=== PATIENT | male | born 1965 | race Caucasian/White ===

== ENCOUNTER → 2025-05-06 09:36 | Outpatient (BNVA) | payer OTHER, SELFPAY | PROVIDERS: PCP Nurse Practitioner; Visit Provider Surgery | DX: Z12.11 Encounter for screening for malignant neoplasm of colon (principal) | CPT/HCPCS: 99203 ==

== ENCOUNTER 2025-06-12 06:45 | Day surgery (SDC) | payer OTHER, SELFPAY ==
[2025-06-12 07:00] VITALS: BP 120/86; PULSE 101; RESP 18; TEMP 36.2; O2SAT 95; BMI 29.2
--- NOTE | 2025-06-12 07:28 | W.PM.OPSFHP ---
Same Day Surgery H&P Indication for Procedure/HPI DATE OF PROCEDURE: June 12, 2025 CHIEF COMPLAINT/INDICATIONFOR SURGICAL PROCEDURE: need for screening colonoscopy PREOP DIAGNOSIS: need for screening colonoscopy PLANNED PROCEDURE: Operation Date: 06/12/25 08:20 Proposed Procedures p Colonoscopy [id number] Z12.11(Not Applicable) - Prabhu Esqueda MD Medications/Allergies* Home Medications ?Medication ?Instructions ?Recorded ?Confirmed ?Type amlodipine 2.5 mg tablet 2.5 mg PO DAILY 06/02/25 06/02/25 History aspirin 81 mg tablet,delayed 81 mg PO DAILY 06/02/25 06/02/25 History release folic acid 400 mcg tablet 0.4 mg PO DAILY 06/02/25 06/02/25 History levothyroxine 25 mcg tablet 25 mcg PO DAILY 06/02/25 06/02/25 History naltrexone 50 mg tablet 50 mg PO DAILY 06/02/25 06/02/25 History rosuvastatin 20 mg tablet 20 mg PO DAILY 06/02/25 06/02/25 History topiramate 50 mg tablet 50 mg PO DAILY 06/02/25 06/02/25 History Allergies/Adverse Reactions Allergy/AdvReac Type Severity Reaction Status Date / Time No Known Allergies Allergy Unverified 05/06/25 09:45 Current Medications: Generic Name Dose Route Start Last Admin Trade Name Freq PRN Reason Stop Dose Admin Sodium Chloride 1,000 mls @ 15 mls/hr 06/12/25 06:51 06/12/25 07:08 Sodium Chloride 0.9% IV 06/13/25 06:50 15 mls/hr .Q24H PRN Administration COLONOSCOPY FLUIDS Pertinent History/Comorbid Conditions* Social History Smoking and tobacco/nicotine status: never used tobacco/nicotine Pertinent Exam Findings alert, oriented x 3, clear to auscultation bilaterally and regular rate & rhythm Recommendations Surgery/Procedure today Coding Level of Care Code Acute Code for Chg Fwd
--- NOTE | 2025-06-12 07:36 | ANES.PREANE2 ---
Pre-Anesthetic Assessment Height/Weight: Height 1.8 m Weight 95.254 kg Temp Pulse Resp BP Pulse Ox O2 Del Method 97.1 F L 101 H 18 120/86 95 Room Air 06/12/25 07:00 06/12/25 07:00 06/12/25 07:00 06/12/25 07:00 06/12/25 07:00 06/12/25 07:00 Preop Diagnosis: need for screening colonoscopy Operation Date: 06/12/25 08:20 Proposed Procedures p Colonoscopy [id number] Z12.11(Not Applicable) - Prabhu Esqueda MD Last intake: Intake Last Liquid Date 06/11/25 Last Liquid Time 20:00 Last Solid Date 06/10/25 Last Solid Time 20:00 Social No alcohol and No tobacco recently quit smoking a month ago Exam alert and oriented x 3 Airway Submandibular: within normal limits Cervical ROM: within normal limits Mallampati: Class II Dentition: full History/ROS No significant history except as noted Pulmonary Sleep Apnea (uses CPAP) CV/HEM Hypertension None reported Hepatic None reported GI Gastroesophageal Reflux Disease controlled with Nexium Metabolic Hyperlipidemia and Thyroid Disease [facility] [place] Osteoarthritis/DJD Neuropsych None reported Anesthetic Plan ASA status: 3 Anesthesia: MAC Risk of > 500 ml blood loss (7ml/kg in children): No Medications/Allergies Home Medications ?Medication ?Instructions ?Recorded ?Confirmed ?Last Taken ?Type amlodipine 2.5 mg tablet 2.5 mg PO DAILY 06/02/25 06/02/25 06/10/25 History aspirin 81 mg tablet,delayed 81 mg PO DAILY 06/02/25 06/02/25 06/10/25 History release folic acid 400 mcg tablet 0.4 mg PO DAILY 06/02/25 06/02/25 06/10/25 History levothyroxine 25 mcg tablet 25 mcg PO DAILY 06/02/25 06/02/25 06/10/25 History naltrexone 50 mg tablet 50 mg PO DAILY 06/02/25 06/02/25 06/10/25 History rosuvastatin 20 mg tablet 20 mg PO DAILY 06/02/25 06/02/25 06/10/25 History topiramate 50 mg tablet 50 mg PO DAILY 06/02/25 06/02/25 06/10/25 History Allergies Allergy/AdvReac Type Severity Reaction Status Date / Time No Known Allergies Allergy Unverified 05/06/25 09:45 Current Medications Generic Name Dose Route Start Last Admin Trade Name Freq PRN Reason Stop Dose Admin Sodium Chloride 1,000 mls @ 15 mls/hr 06/12/25 06:51 06/12/25 07:08 Sodium Chloride 0.9% IV 06/13/25 06:50 15 mls/hr .Q24H PRN Administration COLONOSCOPY FLUIDS PFSH Anesthesia Social History Smoking and tobacco/nicotine status: never used tobacco/nicotine
[2025-06-12 08:24] VITALS: BP 102/71; PULSE 82; RESP 18; TEMP 36.4; O2SAT 94
[2025-06-12 08:35] VITALS: BP 97/68; PULSE 79; RESP 18; O2SAT 93
[2025-06-12 08:49] VITALS: BP 106/81; PULSE 81; RESP 18; O2SAT 97
--- NOTE | 2025-06-12 15:29 | ANE.PACU2 ---
Inpatient post-anesthesia follow up: Airway intact: Yes Vital signs: Temperature 97.5 F Pulse Rate 81 Respiratory Rate 18 Blood Pressure 106/81 Pulse Oximetry 97 Oxygen Delivery Me thod Room Air Oxygen Flow Rate Fraction of Inspir ed Oxygen Hydration adequate: Yes Nausea and vomiting: No Pain level: 1 Mental status: Baseline
== END 2025-06-12 08:53 | disposition home or self-care (01) ==
PROVIDERS: PCP Nurse Practitioner; Visit Provider Surgery
PROC: 0DJD8ZZ Inspection of Lower Intestinal Tract, Via Natural or Artificial Opening Endoscopic (ICD-10-PCS; CPT 45378; principal; 2025-06-12 08:20)
DX: Z12.11 Encounter for screening for malignant neoplasm of colon (principal); D12.0 Benign neoplasm of cecum; D12.5 Benign neoplasm of sigmoid colon; Z79.82 Long term (current) use of aspirin; G47.30 Sleep apnea, unspecified; Z99.89 Dependence on other enabling machines and devices; I10 Essential (primary) hypertension; K21.9 Gastro-esophageal reflux disease without esophagitis; E78.5 Hyperlipidemia, unspecified; E07.9 Disorder of thyroid, unspecified
CPT/HCPCS: 45385; 88305; J2371; J2704; J7030

== ENCOUNTER → 2025-06-25 10:16 | Outpatient (BNVA) | payer OTHER, SELFPAY | PROVIDERS: PCP Nurse Practitioner; Visit Provider Surgery | DX: Z51.89 Encounter for other specified aftercare (principal); R03.0 Elevated blood-pressure reading, without diagnosis of hypertension | CPT/HCPCS: 99213 ==